=== PATIENT | male | born 1985 | race Caucasian/White ===

== ENCOUNTER 2022-01-18 19:45 | Emergency (ER) | payer OTHER, SELFPAY ==
[2022-01-18] MEDS ORDERED: Proparacaine 0.5% Opth 15 ML BOT ONE (20:02)
[2022-01-18] MEDS ORDERED: Fluorescein Opthalmic Strip ONE (20:14)
[2022-01-18] MEDS ORDERED: Boostrix 0.5 ML (Tdap) VIAL ONE (20:40)
== END 2022-01-18 20:50 | disposition home or self-care (01) ==
LOC: ERS 19:45
DX: T15.01XA Foreign body in cornea, right eye, initial encounter (principal); Z23 Encounter for immunization; F17.210 Nicotine dependence, cigarettes, uncomplicated
CPT/HCPCS: 65220; 90471; 90715